=== PATIENT | female | born 1960 | race Two or more races ===

== ENCOUNTER 2016-11-27 11:15 | Observation (INO) | payer BC ==
[~2016-11-27] VITALS: Ht 165.1 cm; Wt 74.8 kg
[~2016-11-27 11:15] MED LIST: [UNRECOGNIZED DRUG - OTHER]
[2016-11-27 12:36] LABS: Basophils # (auto) 0 uL; Basophils % (auto) 0.2 % (0.0-2.0); CONDITION Y; Eosinophils # (auto) 0.1 uL; Eosinophils % (auto) 0.7 % (0.0-7.0); Hematocrit 41.1 % (36.0-46.0); Lymphocytes # (auto) 2.6 uL; Mean Corpuscular Hgb Conc. 34.1 g/dL (32.0-36.0); Mean Corpuscular Volume 90.8 fL (80.0-100.0); Mean Platelet Volume 8.6 fL (7.4-10.4); Monocytes # (auto) 0.5 uL; Monocytes % (auto) 6.7 % (0.0-12.0); Neutrophils # (auto) 3.9 uL; Neutrophils % (auto) 55.4 % (37.0-80.0); Platelet Count (auto) 278 10^3/uL (140-450); Red Cell Distribution Width 13.4 % (11.6-16.0)
[2016-11-27 13:07] LABS: Albumin 3.9 g/dL (3.4-5.0); Alkaline Phosphatase 94 U/L (45-117); Anion Gap 7 (5-15); Aspartate Aminotransferase 15 U/L (15-37); Bilirubin, Total 0.2 mg/dL (0.2-1.0); Blood Urea Nitrogen 18 mg/dL (7-18); Carbon Dioxide 26 mmol/L (21-32); Chloride 108 mmol/L (98-107); GFR African American 74 mL/min; GFR Non-African American 61 mL/min; Glucose 94 mg/dL (74-106); Sodium 141 mmol/L (136-145)
[2016-11-27 13:15] VITALS: BP 112/57
[2016-11-27] MEDS ORDERED: ASPirin 81 mg TAB PO ONE (13:30)
[2016-11-27 14:03] LABS: INR 0.93 (0.9-1.15); Partial Thromboplastin Time 26.9 sec (22.64-33.71); Prothrombin Time 10.1 sec (9.37-12.3)
[2016-11-27 14:11] LABS: B-Type Natriuretic Peptide 17.69 pg/mL (0-100)
[2016-11-27 14:35] LABS: Temperature: 24.3 C (20.0-25.0)
== END 2016-11-27 15:18 | disposition home or self-care (01) | DRG 313 ==
LOC: ER 11:19 → OVERFLOW 13:22 → ER 15:18
PROVIDERS: ADMIT Family Medicine; ATTEND Family Medicine
DX: R07.89 Other chest pain (principal); F17.210 Nicotine dependence, cigarettes, uncomplicated; R61 Generalized hyperhidrosis; Z82.49 Family history of ischemic heart disease and other diseases of the circulatory system; Z80.41 Family history of malignant neoplasm of ovary; Z90.721 Acquired absence of ovaries, unilateral
CPT/HCPCS: 36415; 71010; 80053; 83735; 83880; 84443; 84484; 85025; 85379; 85610; 85730; 93005; 99285; G0378

== ENCOUNTER 2020-06-24 15:24 | Emergency (ER) | payer BC, MEDICAID ==
[~2020-06-24] VITALS: Ht 165.1 cm; Wt 65.8 kg
[2020-06-24 15:31] VITALS: BP 137/80
[2020-06-24] MEDS ORDERED: ACETAMINOPHEN 500 MG TAB PO ONE (16:45)
== END 2020-06-24 17:08 | disposition home or self-care (01) ==
LOC: ER 15:25
DX: S39.012A Strain of muscle, fascia and tendon of lower back, initial encounter (principal); F17.210 Nicotine dependence, cigarettes, uncomplicated; V43.52XA Car driver injured in collision with other type car in traffic accident, initial encounter; Y93.89 Activity, other specified; Y92.488 Other paved roadways as the place of occurrence of the external cause; Y99.8 Other external cause status
CPT/HCPCS: 72100